=== PATIENT | male | born 1960 | race Two or more races ===

== ENCOUNTER 2019-04-05 18:22 | Emergency (ER) | payer OTHER ==
[~2019-04-05] VITALS: Ht 185.4 cm; Wt 110.7 kg
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
[2019-04-05 18:36] VITALS: BP 170/87
--- NOTE | 2019-04-05 19:00 | NUR ---
HAND-OFF: Report given to chiquita roy.
--- NOTE | 2019-04-05 19:05 | NUR ---
ED Nurse Note: Report received from LUIS Flores. Pt resting in bed. No acute distress noted.
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
[2019-04-05] MEDS ORDERED: IBUPROFEN600 MG ORAL (19:25)
[2019-04-05] MEDS ORDERED: ROBAXIN-750750 MG PO (19:25)
[2019-04-05] MEDS ORDERED: LIDODERM700 M1 TOPIC (19:25)
[2019-04-05 19:40] VITALS: BP 155/74
--- NOTE | 2019-04-05 19:40 | NUR ---
ER DISCHARGE NOTE: Patient is cleared to be discharged per ERMD, pt is aox4, on room air, with stable vital signs. pt was given dc and prescription instructions, pt was able to verbalize understanding, pt id band removed. pt is able to ambulate with steady gait. pt took all belongings.
== END 2019-04-05 19:40 | disposition home or self-care (01) ==
LOC: EMR 19:15
DX: S16.1XXA Strain of muscle, fascia and tendon at neck level, initial encounter (principal); S39.012A Strain of muscle, fascia and tendon of lower back, initial encounter; M62.830 Muscle spasm of back; I10 Essential (primary) hypertension; E11.9 Type 2 diabetes mellitus without complications; V43.52XA Car driver injured in collision with other type car in traffic accident, initial encounter; Y92.411 Interstate highway as the place of occurrence of the external cause
CPT/HCPCS: 99282